=== PATIENT | female | born 2000 | race Caucasian/White ===

== ENCOUNTER 2025-08-31 11:40 | Emergency (ER) | payer OTHER ==
[~2025-08-31] VITALS: Ht 170.2 cm; Wt 80.4 kg
[2025-08-31 13:43] VITALS: BP 135/82; TEMP 98.4; O2SAT 98
[2025-08-31] MEDS ORDERED: IBUP600T42 PO (17:12)
== END 2025-08-31 17:21 | disposition home or self-care (01) ==
LOC: M ED 11:40
DX: S83.92XA Sprain of unspecified site of left knee, initial encounter (principal); X50.1XXA Overexertion from prolonged static or awkward postures, initial encounter; Y92.009 Unspecified place in unspecified non-institutional (private) residence as the place of occurrence of the external cause; Y93.K1 Activity, walking an animal; Y99.9 Unspecified external cause status